=== PATIENT | male | born 1990 | race Caucasian/White ===

== ENCOUNTER 2022-01-14 17:51 | Emergency (ER) | payer BC, SELFPAY ==
--- NOTE | 2022-01-14 17:54 | ED.WOUNDLAC ---
HPI - Wound/Laceration General Chief Complaint: Wound/Laceration Stated Complaint: laceration Time Seen by Provider: 01/14/22 17:54 Source: patient Mode of arrival: ambulatory Limitations: no limitations History of Present Illness HPI narrative: is a 31-year-old male patient presenting to clinic today with complaints of a laceration to his left 3rd finger. He reports he was cutting some carrots with a paring knife and missed the care and caught his lateral distal 3rd finger pain he did cut through the nail some. Bleeding is controlled. Tetanus is not up-to-date Related Data Home Medications Medication Instructions Recorded Confirmed No Home Medications 01/14/22 01/14/22 Allergies Allergy/AdvReac Type Severity Reaction Status Date / Time amoxicillin Allergy Unknown Unknown Verified 01/14/22 18:43 nickel Allergy Unknown Skin Verified 01/14/22 18:43 Reaction sulfamethoxazole [Septra] Allergy Unknown Skin Verified 01/14/22 18:43 Reaction trimethoprim [Septra] Allergy Unknown Skin Verified 01/14/22 18:43 Reaction Review of Systems Review of Systems: Pertinent positives per HPI. Patient denies any fever, chills, rash, headache, visual changes, dizziness, cough, runny nose, sore throat, shortness of breath, chest pain, palpitations, nausea, vomiting, diarrhea, constipation, abdominal pain, or any urinary issues. PMFSH Family History Family History Grandparent Diabetes mellitus Family history of cardiovascular disease Other Family history of malignant neoplasm Family history of malignant neoplasm of breast Social History Social History Smoking status: Never smoker Alcohol intake: never Comments At the time of my signature, I reviewed and agree with the nursing past medical, surgical, social, and family history. There is no relevant family history pertinent to the patient complaint. Exam Narrative: General: Well-developed, well nourished, in no apparent distress Head: Normocephalic, atraumatic. Cardio: Regular rate and rhythm, s1 and s2 normal, no murmur appreciated. Resp: Clear to auscultation bilaterally, no rhonchi, rales, wheezing or rubs. Integumentary: [place], warm, and dry, intact without lesion, 1 cm gapping laceration to the lateral distal 3rd finger involving the fingernail. Course Course Emergency Course: Portions of this record may have been created with voice recognition software. Level of Care: Express Care Visit Vital Signs Vital signs: Vital Signs Temperature 36.5 C 01/14/22 18:06 Pulse Rate 93 01/14/22 18:06 Respiratory Rate 18 01/14/22 18:06 Blood Pressure 144/76 H 01/14/22 18:06 Pulse Oximetry 100 01/14/22 18:06 Oxygen Delivery Room Air 01/14/22 18:06 Temperature 36.5 C 01/14/22 18:06 Pulse Rate 93 01/14/22 18:06 Respiratory Rate 18 01/14/22 18:06 Blood Pressure 144/76 H 01/14/22 18:06 Pulse Oximetry 100 01/14/22 18:06 Oxygen Delivery Room Air 01/14/22 18:06 Vital signs reviewed Procedures Laceration Laceration 1: Date: 01/14/22 Site: other (right 3rd finger) Side (If applicable): right Size (cm): 1 Description: linear and flap Depth: simple, single layer Local Anesthetic: lidocaine 1% Amount of anesthesia used (mL): 4 Pre-repair: wound explored and irrigated ====== Skin Level ====== Skin layer closed with: nylon Size (cm): 4-0 Number of sutures: 2 Technique: simple, interrupted ====== Subcutaneous Layer ====== ====== Muscle Layer ====== ====== Tendon Layer ====== Dressing: Verbal consent obtained for laceration repair. Risk and benefits explained and patient voiced understanding. Area was cleansed with Techni care and a 25 gauge needle was then used to instill (4)
[2022-01-14 18:06] VITALS: BP 144/76; PULSE 93; RESP 18; TEMP 36.5; O2SAT 100
[2022-01-14] MEDS: TETANUS,DIPHTHERIA,AC PERTUSSIS ADULT (0.5 ML) BOOSTRIX IM (18:17)
== END 2022-01-14 18:39 | disposition home or self-care (01) ==
PROVIDERS: Emergency Provider Nurse Practitioner Family; PCP Family Medicine
DX: S61.213A Laceration without foreign body of left middle finger without damage to nail, initial encounter (principal); W26.0XXA Contact with knife, initial encounter; Z23 Encounter for immunization
CPT/HCPCS: 12001; 90471; 90715; 99202; G0463

== ENCOUNTER 2024-12-02 08:14 | Outpatient (CLI) | payer OTHER, SELFPAY ==
--- NOTE | ~2024-12-02 | US_ITS ---
US abdomen limited Indication: R79.89 - Other specified abnormal findings of blood chemi... Comparison: None Technique: [place]-scale and color Doppler images were obtained. Findings: LIVER: Unremarkable, liver contours intact, no lesions. Normal echogenicity. . The liver measures 14.6 cm. GALLBLADDER/BILIARY: Unremarkable.No cholelithiais, wall thickening or pericholecystic fluid. No biliary dilatation. CBD 3.3 mm. [place] sign negative. PANCREAS: Unremarkable. Right Kidney: The right kidney was not imaged. Impression: No acute abnormality. Reviewed, dictated and finalized at location A. Impression: No acute abnormality.
== END 2024-12-02 08:15 | disposition home or self-care (01) ==
LOC: GOSHIMG 08:14
PROVIDERS: PCP Family Medicine; Visit Provider Family Medicine
DX: R79.89 Other specified abnormal findings of blood chemistry (principal)
CPT/HCPCS: 76705